=== PATIENT | female | born 1980 | race Two or more races ===

== ENCOUNTER 2020-05-28 08:50 | Day surgery (SDC) | payer OTHER ==
[~2020-05-28 08:50] MED LIST: PREDNISONE2.5 MG PO
[2020-05-28] MEDS ORDERED: PERCOCET 5-3251 EACH PO (12:32)
[2020-05-28] MEDS ORDERED: NEURONTIN600 M1 PO (12:37)
[2020-05-28] MEDS ORDERED: COLACE100 MG PO (12:37)
== END 2020-05-28 16:25 | disposition home or self-care (01) ==
LOC: CIR.AMB 08:50
PROVIDERS: ATTEND Surgery
DX: K42.0 Umbilical hernia with obstruction, without gangrene (principal)